=== PATIENT | female | born 1975 | race Two or more races ===

== ENCOUNTER 2016-11-15 22:34 | Inpatient (IN) | payer SELFPAY ==
[~2016-11-15] VITALS: Ht 162.6 cm; Wt 59.2 kg
--- NOTE | 2016-11-15 23:03 | NUR ---
CALLED PT IN [place], NO REPONSE
--- NOTE | 2016-11-16 00:20 | NUR ---
PT AMBULATED TO BED #2 WITH A LIMP. PT HAS REDNESS, EDEMA AND BLISTERS X2 ON BACK OF LT THIGH. PT STATED THAT SHE DOES NOT KNOW WHAT BIT HER, BUT THE REDNESS HAS BEEN GETTING WORSE OVER THE LAST 2 DAYS. PT IS AA&O X4. PT IS UNABLE TO GIVE URINE AT THIS TIME. DR. PUGA IS AT THE BEDSIDE.
[2016-11-16] MEDS ORDERED: IV NS 0.9% 500 ML BAG IV ONE (00:30)
[2016-11-16] MEDS ORDERED: ONDANSETRON HCL/PF 4 MG/2 ML VIAL IVP ONE (00:30)
[2016-11-16] MEDS ORDERED: VANCOMYCIN 1 GM in IV D5W 250 ML IV ONE (00:30)
[2016-11-16] MEDS ORDERED: MORPHINE SULFATE INJ 2 MG/ML DISP.SYRIN IV ONE (00:30)
[2016-11-16] MEDS ORDERED: IV SET PRIMARY PUMP SET 1 EA INFUS.SET MC ONE ×2 (00:59→04:11)
[2016-11-16] MEDS ORDERED: MORPHINE SULFATE INJ 2 MG/ML DISP.SYRIN ONE (00:59)
[2016-11-16] MEDS ORDERED: ONDANSETRON HCL/PF 4 MG/2 ML VIAL ONE (00:59)
[2016-11-16] MEDS ORDERED: IV NS 0.9% 500 ML IV ONE (00:59)
[2016-11-16] MEDS ORDERED: IV SET PRIMARY 1 EA INFUS.SET MC ONE (00:59)
[2016-11-16] MEDS ORDERED: VANCOMYCIN 1 GM VIAL ONE (01:00)
[2016-11-16 01:05] LABS: BASOPHILS % (AUTO) 0.1 % (0.0-2.0); EOSINOPHILS % (AUTO) 1.2 % (0.0-6.0); HEMATOCRIT 42 % (33-45); HEMOGLOBIN 13.7 g/dL (11.5-14.8); LYMPHOCYTES % (AUTO) 13.9 % (20.0-44.0); MEAN CORPUSCULAR HEMOGLOBIN 29 PG (26.0-33.0); MEAN CORPUSCULAR HGB CONC 33 g/dl (31.0-36.0); MEAN CORPUSCULAR VOLUME 87 fL (82-100); MONOCYTES % (AUTO) 5.6 % (2.0-12.0); NEUTROPHILS % (AUTO) 79.2 % (43.0-81.0); PLATELET COUNT (AUTO) 359 /CMM (150-450); RDW COEFFICIENT OF VARIATION 13.1 (11.5-15.0); WHITE BLOOD COUNT (AUTO) 14.1 K/uL (4.3-11.0)
--- NOTE | 2016-11-16 01:05 | NUR ---
PT AMBULATED TO THE BATHROOM TO GIVE A URINE SAMPLE.
[2016-11-16 01:06] LABS: EOSINOPHILS # (AUTO) 0.2 /CMM (0.0-0.7); MONOCYTES # (AUTO) 0.8 /CMM (0.1-1.30); NEUTROPHILS # (AUTO) 11.2 /CMM (1.8-8.9)
[2016-11-16 01:09] LABS: CARBON DIOXIDE 29 mmol/L (21-32); CHLORIDE 102 mmol/L (98-107); CREATININE 0.9 mg/dL (0.6-1.3); GLUCOSE 124 mg/dL (74-106); POTASSIUM 3.8 mmol/L (3.5-5.1); SODIUM SERUM 140 mmol/L (136-145); UREA NITROGEN, BLOOD 14 mg/dL (7-18)
--- NOTE | 2016-11-16 01:10 | NUR ---
URINE SENT TO LAB.
[2016-11-16 01:14] LABS: ALANINE AMINOTRANSFERASE 36 U/L (12-78); ALBUMIN 3.7 g/dL (3.4-5.0); ALKALINE PHOSPHATASE 65 U/L (46-116); ASPARTATE AMINOTRANSFERASE 17 U/L (15-37); BILIRUBIN,DIRECT 0.1 mg/dL (0.0-0.2); BILIRUBIN,TOTAL 0.4 mg/dL (0.2-1.0); TOTAL PROTEIN, SERUM 7.1 g/dL (6.4-8.2)
--- NOTE | 2016-11-16 01:27 | NUR ---
REPORT GIVEN TO EMILY WESLEY
[2016-11-16 01:31] LABS: BILIRUBIN,URINE NEGATIVE (NEGATIVE); BLOOD, URINE TRACE-INTA Ery/uL (NEGATIVE); COLOR,URINE YELLOW (YELLOW); KETONES,URINE NEGATIVE (NEGATIVE); LEUKOCYTE ESTERASE ,URINE NEGATIVE (NEGATIVE); NITRITE, URINE POSITIVE (NEGATIVE); PROTEIN,URINE NEGATIVE (NEGATIVE); UGLUCOSE NEGATIVE (NEGATIVE); UROBILINOGEN,URINE 0.2 EU/dL (0.2)
[2016-11-16 01:32] LABS: APPEARANCE,URINE CLOUDY (CLEAR)
[2016-11-16 01:36] LABS: BACTERIA,URINE 3+ /HPF (None Seen); RBC,URINE 0-2 /HPF (0-2); SQUAMOUS EPITHELIAL CELL,UR Few /HPF (None Seen)
--- NOTE | 2016-11-16 02:15 | NUR ---
DR. PUGA IS SPEAKING WITH DR. MOORE RE: PT.
--- NOTE | 2016-11-16 02:19 | NUR ---
[facility] [place] [place]
[2016-11-16 02:30] VITALS: BP_SYST 94; BP_SYST 97; BP_DIAS 57
--- NOTE | 2016-11-16 02:30 | NUR ---
RN NOTES RECEIVED PT FROM ER WITH DX. OF CELLULITIS, PT IS A/OX4, PT HAS BLISTER ON THE LEFT INNER THIGH, DENIES PAIN, NO SOB ADMISSION INSTRUCTION WAS GIVEN, CALL LIGHT WITHIN REACH, SIDERAILS UPX2 CONTINUE TO MONITOR
[2016-11-16] MEDS ORDERED: ACETAMINOPHEN 325 MG TABLET PO PRN (04:00)
[2016-11-16] MEDS ORDERED: MAG HYDROX/AL HYDROX/SIMETH 30 ML UDC PO PRN (04:00)
[2016-11-16] MEDS ORDERED: CLINDAMYCIN IV RTU IN D5W 900 MG/50 ML PIGGYBACK IV SCH (04:00)
[2016-11-16] MEDS ORDERED: Z GUARD REMEDY 2 OZ OINT TP PRN (04:00)
[2016-11-16] MEDS ORDERED: HYDROCODONE/APAP 5/325MG 1 EACH TABLET PO PRN (04:00)
[2016-11-16] MEDS ORDERED: ONDANSETRON HCL/PF 4 MG/2 ML VIAL IVP PRN (04:00)
[2016-11-16] MEDS ORDERED: ZOLPIDEM TARTRATE 5 MG TABLET PO PRN (04:00)
[2016-11-16] MEDS ORDERED: MAGNESIUM HYDROXIDE 30 ML UDC PO PRN (04:00)
[2016-11-16] MEDS ORDERED: CLINDAMYCIN 900 MG/6 ML VIAL ONE (04:07)
[2016-11-16] MEDS ORDERED: IV NS 0.9% 250 ML IV ONE (04:11)
[2016-11-16] MEDS ORDERED: SECONDARY IV SET 1 EA INFUS.SET MC ONE (04:11)
[2016-11-16] MEDS ORDERED: IV D5W 50 ML IV ONE (04:12)
[2016-11-16] MEDS: CLINDAMYCIN 600 MG in IV D5W 50 ML IV SCH ×3 (04:34→22:03)
--- NOTE | 2016-11-16 04:45 | NUR ---
RN NOTES SPOKE TO DR. MOORE AND CLARIFY CLINDAMYCIN IV ORDER,. DR. MOORE ORDERED TO D/C THE 900MG IV , ORDER NOTED AND CARRIED OUT
--- NOTE | 2016-11-16 06:42 | NUR ---
RN NOTES SLEEPING BUT AROUSABLE, DENIES PAIN, NO SOB, MORNING CARE RENDERED, PT, NEEDS ATTENDED
--- NOTE | 2016-11-16 07:27 | NUR ---
MS/RN NOTES RECEIVED PATIENT RESTING IN BED COMFORTABLY, SLEEPING AROUSED EASILY. NO RESPIRATORY DISTRESS NOTED ON ROOM AIR. NO COMPLAINTS OF PAIN OR DISCOMFORT AT THIS TIME. IV TO RIGHT LOWER EXT #20 INTACT, H/L. MORNING VITAL SIGNS STABLE. SAFETY MEASURES RENDERED, CALL LIGHT PLACED WITHIN REACH. WILL CONTINUE TO MONITOR.
[2016-11-16] MEDS ORDERED: PANTOPRAZOLE 40 MG TABLET.DR PO SCH (07:30)
[2016-11-16 08:00] VITALS: BP 98/53
--- NOTE | 2016-11-16 13:20 | NUR ---
/RN NOTES DR. DELGADO AT BEDSIDE, DISCUSSING CURRENT PLAN OF TREATMENT. PATIENT ABLE TO RECALL EVEN OF POSSIBLE CAUSE OF ADMISSION. REPORTED TO PHYSICIAN TO HAVE INFECTED CRYSTAL METH INTO THE LEG. Addendum: 11/16/16 at 1424 by VICTOR MANUEL GALINDO RN /EMILY NOTES DR. DELGADO AT BEDSIDE, DISCUSSING CURRENT PLAN OF TREATMENT. PATIENT ABLE TO RECALL EVENT OF POSSIBLE CAUSE OF ADMISSION. REPORTED TO PHYSICIAN TO HAVE INJECTED CRYSTAL METH INTO THE LEG.
[2016-11-16 16:00] VITALS: BP 102/60
--- NOTE | 2016-11-16 18:38 | NUR ---
MS/RN NOTES PATIENT IN BED , RESTFUL, SLEPT ALL THROUGHOUT THE DAY. APPEARS STABLE WITH NO SIGNIFICANT CHANGES. IV ANTIBIOTICS ADMINISTERED ORDERED. PATIENT KEPT CLEAN AND COMFORTABLE. SAFETY MEASURES RENDERED, CALL LIGHT PLACED WITHIN REACH. WILL ENDORSE CARE TO NITRIC ACID CONCENTRATOR OPERATOR FOR [facility].
--- NOTE | 2016-11-16 19:30 | NUR ---
MS RN INITIAL NOTE RECEIVED PT SLEEPING BUT EASILY AROUSED, NO COMPLAINT OF PAIN OR RESPIRATORY DISTRESS NOTED DURING PHYSICAL ASSESSMENT, PT IS AMBLE TO AMBULATE WITH A STEADY GAIT, SHE IS CLEAN/DRY AND COMFORTABLE, SAFETY MEASURES WILL BE MAINTAINED AT ALL TIMES, NEEDS WILL BE ANTICIPATED AND ATTENDED TO PROMPTLY.
[2016-11-16 20:10] VITALS: BP 107/68
[2016-11-17] MEDS: CLINDAMYCIN 600 MG in IV D5W 50 ML IV SCH (05:29)
--- NOTE | 2016-11-17 06:19 | NUR ---
MS RN CLOSING NOTE PT REMAINED STABLE DURING CHARGER TESTER, NO SIGNIFICANT CHANGE IN CONDITION NOTED, WILL ENDORSE TO INCOMING NURSE FOR [facility].
--- NOTE | 2016-11-17 06:47 | NUR ---
PT SUDDENLY DECIDED THAT SHE WANTS TO LEAVE AGAINS MEDICAL ADVICE, SHE STATES THAT NOBODY HAS EXPLAINED HER SITUATION AND THE REASON WHY SHE IS STILL HOSPITALIZED, EXPLAINED PLAN OF CARE AND TREATMENT BUT PT STATES THAT NO DOCTOR HAS TALKED TO HER IN 3 DAYS, AND SHE FEELS LIKE NO PROGRESS IS BEING MADE, ADVICE PT TO STAY UNTIL DOCTORS ROUND IN THE AM TO ASK ANY QUESTIONS THAT WOULD ANSWER HER QUESTIONS, PT THEN ASKED IF SHE CAN GO OUT TO SMOKE, EXPLAINED TO PT THAT SHE WILL BE ABLE TO AFTER SIGNING A WAIVER AND CONTROL TOWER OPERATOR ON STAFF IS AVAILABLE, PT NOW STATES FEELING CLAUSTROPHOBIC AND SHE WANT TO LEAVE IMMEDIATELY, AGAIN TRIED TO CONVINCE PT TO STAY AND WAIT FOR BREAKFAST, IN THE ATTEMPT TO CONTACT MD TO TALK TO PT AND EXPLAINED PLAN OF CARE AND PROGRESS, PT SAID THAT SHE WANTS TO LEAVE IMMEDIATELY AND SHE WON'T WAIT, CONNIE RYDER D/C'D, AND CHARGE NURSE AWARE.
== END 2016-11-17 06:30 | disposition left against medical advice (07) | DRG 603 ==
LOC: ER 22:34 → MEDSG2 11-16 01:53
PROVIDERS: ADMIT Internal Medicine; ATTEND Internal Medicine
DX: L03.116 Cellulitis of left lower limb (principal); F15.90 Other stimulant use, unspecified, uncomplicated; D72.829 Elevated white blood cell count, unspecified
CPT/HCPCS: 36415; 80048-TC; 80076-TC; 81000-TC; 83605-TC; 85025-TC; 87040-TC; 87081-TC; 87086-TC; A4606; J2270; J2405; J3370; J3490; J7040; J7050; J7060; Z7610